=== PATIENT | male | born 1965 | race Caucasian/White ===

== ENCOUNTER → 2018-03-17 14:19 | Emergency (ER) | payer MEDICARE, MEDICAID ==
--- OUTSIDE RECORDS SUMMARY | 2018-03-17 14:33 | XMS REPORT | Continuity of Care Document ---
:1965 Author Organization [facility] Support Name Relationship Address Phone ANTHONY DELVALLE father [phone] [place] [address] WOODROW DELVALLE mother [phone] [facility] [address] [place] [address] ANTHONY DELVALLE [phone] [place] [address] WOODROW DELVALLE mother [phone] [facility] [address] [place] [address] Allergies and Intolerances No Known Allergies Medications RxNorm Medication Dose Route Instructions Start Date End Date Status 529890 Ascorbic Acid 500 MG 500 mg oral orally every day Active Oral Tablet 998436 benzonatate 200 MG 200 mg oral orally 3 times Active Oral Capsule per day as needed. (3 days) 2418 Cholecalciferol 1000 unit oral orally every Active morning ( administer with meals;) 2598 Clonazepam 0.5 mg oral orally 2 times Active per day 643893 Diazepam 5 MG Oral 5 mg oral orally once as Active Tablet needed. 893967 lacosamide 200 MG 200 mg oral orally every day Active Oral Tablet 219001 Levetiracetam 1500 mg oral orally every Active morning 541361 Levetiracetam 2000 mg oral orally every Active evening 403656 Levofloxacin 750 MG 750 mg oral orally every day Active Oral Tablet (4 days) (Start 02/18/18) Multivitamins 1 tab-cap oral orally every day Active 268443 Phenytoin sodium 200 100 mg oral orally 4 times Active MG Extended Release per week Oral Capsule 918922 Phenytoin sodium 200 200 mg oral orally 3 times Active MG Extended Release per week Oral Capsule 070020 Phenytoin sodium 200 200 mg oral orally 3 times Active MG Extended Release per week Oral Capsule 927453 zonisamide 100 MG 100 mg oral orally every day Active Oral Capsule Problems Code Code System Problem Name Start Date End Date Status 34031290 SNOMED-CT Seizure U Active 30311532 SNOMED-CT Mental disorder U Active Procedures No data in the system Results Laboratory Results Order: CBC DIFF Specimen Source: Body Site : Legend: (G,H)=High, (GG,HH,CH,#H)=Above High Threshold, (#,L)=Low, (##,CL,#L, LL)=Below Low Threshold, (C,CC,CA,#A,A)=Abnormal LOINC Test Result Flag Range Units Date 6690-2 1WBC # Bld Auto 12.4 H 4.8-10.8 K/uL 02/17/2018 17:28 91265-0 1RBC # Bld 4.84 4.60-6.20 M/uL 02/17/2018 17:28 718-7 1Hgb Bld-mCnc 15.1 13.5-18.0 gm/dL 02/17/2018 17:28 4544-3 1Hct VFr Bld Auto 46.6 41.0-53.0 % 02/17/2018 17:28 787-2 1MCV RBC Auto 96.3 80.0-100.0 fL 02/17/2018 17:28 91898-4 1MCHC RBC-mCnc 32.3 30.0-36.5 % 02/17/2018 17:28 52034-2 1MCH RBC Qn 31.1 27.0-34.0 pg 02/17/2018 17:28 80173-7 1RDW RBC 12.1 11.0-15.0 % 02/17/2018 17:28 777-3 1Platelet # Bld Auto 148 130-450 K/uL 02/17/2018 17:28 00826-2 1PMV Bld Auto 7.5 6.0-12.0 fL 02/17/2018 17:28 751-8 1Neutrophils # Bld Auto 68 37-80 % 02/17/2018 17:28 66638-7 1Lymphocytes NFr Bld 16 10-50 % 02/17/2018 17:28 5905-5 1Monocytes NFr Bld Auto 16 H 0-12 % 02/17/2018 17:28 89680-1 1Eosinophil # Bld 1 <=8 % 02/17/2018 17:28 704-7 1Basophils # Bld Auto 0 <=3 % 02/17/2018 17:28 61035-2 1Neutrophils # Bld 8.4 1.8-8.6 K/uL 02/17/2018 17:28 731-0 1Lymphocytes # Bld Auto 1.9 0.5-5.0 K/uL 02/17/2018 17:28 742-7 1Monocytes # Bld Auto 2.0 H 0.0-1.3 K/uL 02/17/2018 17:28 93319-0 1Eosinophil # Bld 0.1 0.0-0.9 K/uL 02/17/2018 17:28 704-7 1Basophils # Bld Auto 0.0 0.0-0.3 K/ul 02/17/2018 17:28 Performing Lab Footnotes:[facility] - [id number] - [address] [place] [address] [place]A Cobb [id number] Order: COMPREHENSIVE PANEL Specimen Source: Body Site: Legend: (G,H)= High, (GG,HH,CH,#H)=Above High Threshold, (#,L)=Low, (##,CL,#L,LL)=Below Low Threshold, (C,CC,CA,#A,A)=Abnormal LOINC Test Result Flag Range Units Date 2951-2 1Sodium SerPl-sCnc 137 136-145 mmol/L 02/17/2018 17:28 3-3 1Potassium SerPl-sCnc 4.2 3.5-5.2 mmol/L 02/17/2018 17:28 2074-0 1Chloride SerPl-sCnc 100 100-108 mmol/L 02/17/2018 17:28 2027-9 1CO2 SerPl-sCnc 24 21-32 mmol/L 02/17/2018 17:28 2345-7 1Glucose SerPl-mCnc 104 H 70-100 mg/dL 02/17/2018 17:28 3094-0 1BUN SerPl-mCnc 11 7-21 mg/dL 02/17/2018 17:28 2160-0 1Creat SerPl-mCnc 0.8 0.6-1.3 mg/dL 02/17/2018 17:28 Interpretive Saloni: 1Normal Kidney Function or Mild Disease - GFR >OR=60 Chronic Kidney Disease - GFR 15-59 Renal Failure - GFR < 15 GFR not calculated on patients under 18 years of age. Calculated (estimated) GFR is based on the MDRD Study equation, which assumes a steady state for creatinine. Estimated GFR may not be appropriate for medication dosing. 41891-6 1Ca-I SerPl-mCnc 10.1 8.5-10.8 mg/dL 02/17/2018 17:28 72421-4 1GFR/BSA.pred SerPl-ArVRat >60 02/17/2018 17:28 81848-2 1Bilirub Bld-mCnc 1.0 0.0-1.2 mg/dL 02/17/2018 17:28 2885-2 1Prot SerPl-mCnc 7.0 6.4-8.2 gm/dL 02/17/2018 17:28 1751-7 1Albumin SerPl-mCnc 4.5 3.4-4.8 gm/dL 02/17/2018 17:28 6768-6 1ALP SerPl-cCnc 138 40-150 U/L 02/17/2018 17:28 1742-6 1ALT SerPl-cCnc 31 0-55 U/L 02/17/2018 17:28 1920-8 1AST SerPl-cCnc 25 5-37 U/L 02/17/2018 17:28 Performing Lab Footnotes:[facility] - [id number] - [address] [place] [address] [place] HARRIS Radiology Results Order: CHEST TWO VIEWSExam Completion Date:02/17/2018 15:5302/17/2018 4:11 PM CHEST TWO VIEWS ORDERING CLINICAL INFORMATION: -- COUGH provided from eRecord without change. ADDITIONAL CLINICAL INFORMATION OBTAINED FROM EMR: None. COMPARISON : 09/30/2013 FINDINGS: Tubes and Catheters: None. Central Airways: Normal. Lungs: Dense opacity seen in the left lower lobe. Right lower lobe atelectasis with elevation of the right hemidiaphragm. Pleura/Pleural space: Normal. Heart and Mediastinum: Normal. Bones and soft tissues: No acute or aggressive changes noted. IMPRESSION: Dense opacity seen in the left lower lobe could be due to infiltrate/atelectasis. Right lower lobe atelectasis elevation of the right hemidiaphragm. END REPORT [facility] submits Radiology results to [facility] and [facility] then provides those same results to [facility]. All results are available to [facility] and [facility] provider portal users. [facility] DICOM images are available to the [facility] provider portal users only. [facility] DICOM images are not available to [facility]. There is no current [facility] cross-[facility] functionality allowing images to be available through the [facility] to [facility] connectivity. Electronically signed By: Americo Gonzales M.D. Read By: AMERICO GONZALES Date: 02/17/2018 16:27 Social History Code Code System Social History Observation Description Dates Observed 938044745 SNOMED CT Current Smoking Status Never smoker UNK AdministrativeGender Sex Assigned At Unknown Vital Signs Code Code System Vitals Value Date 8865-8 LOINC Pulse Rate 86 {beats}/min 02/17/2018 9279-1 LOINC Respiratory Rate 18 /min 02/17/2018 70643-4 LOINC O2% BldC Oximetry 95 % 02/17/2018 8480-6 LOINC BP Systolic 132 mm[Hg] 02/17/2018 8462-4 LOINC BP Diastolic 84 mm[Hg] 02/17/2018 8310-5 LOINC Body Temperature 98.3 [degF] 02/17/2018 8302-2 LOINC Height 68 [in_i] 02/17/2018 41141-6 LOINC Weight 105 kg 02/17/2018 3140-1 LOINC Body surface area Derived from formula 2.17 m2 02/17/2018 74687-8 LOINC BMI (Body Mass Index) 35.4 kg/m2 02/17/2018 Goals Section No data in the system Health Concerns No data in the systemEncounter Diagnosis Date Code Code System Diagnosis Status J18.9 ICD10 PNEUMONIA UNSPECIFIED ORGANISM Active Advance Directives No Data in the System Family History No data in the system Functional Status Code Functional Condition Code System Date Status Independent adls SNOMED CT 02/17/2018 Active Appears well nourished/hydrated SNOMED CT 02/17/2018 Active Immunizations Vaccine Code Code System Vaccine Name Date Status UTD Completed Medical Equipment No data in the system Mental Status Code Cognitive Condition Code System Date Status Perrl SNOMED CT 02/17/2018 Active Oriented x [address] 02/17/2018 Active No acute distress SNOMED CT 02/17/[address] 02/17/2018 Active Assessment and Plan Assessments No data in the systemPlan Of Treatment No data in the systemPending Tests No data in the system Hospital Discharge Instructions No data in the system Reason for Visit Reason for Visit Sore Throat, Cough
--- NOTE | 2018-03-17 17:15 | ED ---
Neurological HPI - HPI Summary HPI Summary: This pt is a 52 y/o male presenting to [facility] c/o increasing amount of seizures over the past couple of weeks. Pt reports the pt had 17 seizures yesterday alone. Pt has had focal seizures since he was 18 years old. He has not had any seizures today. Pt denies any pain, chest pain, SOB, nausea, vomiting, headache , fever, chills. Patient's sister monitors his medications. - History of Current Complaint Chief Complaint: EDSeizure Stated Complaint: SEIZURE 03/16 Time Seen by Provider: 03/17/18 17:08 Hx Obtained From: Patient, Family/[employer] - Father Onset/Duration: Started weeks ago Timing: Intermittent Episodes Lasting: - increasing in number of seizures a day Current Severity: None Pain Intensity: 0 Character: Other: - seizures Seizure Character: Generalized Aggravating: Nothing Alleviating: Nothing Associated Signs and Symptoms: Positive: Seizure. Negative: Headache, Nausea/ Vomiting, Fever, Chest Pain, Shortness of Breath Related Hx: Seizure - Allergy/Home Medications Allergies/Adverse Reactions: Allergies Allergy/AdvReac Type Severity Reaction Status Date / Time No Known Allergies Allergy Verified 03/17/18 14:27 Home Medications: Home Medications Ascorbic Acid TAB* [Vitamin C TAB*] 500 mg PO DAILY 03/17/18 [History Confirmed 03/17/18] Cholecalciferol TAB* [Vitamin D TAB*] 1,000 unit PO DAILY WITH MEAL 03/17/18 [ History Confirmed 03/17/18] Diazepam TAB(*) [Valium TAB(*)] 5 mg PO DAILY PRN 03/17/18 [History Confirmed ] Lacosamide TAB* [Vimpat TAB*] 200 mg PO DAILY MDD 200 mg 03/17/18 [History Confirmed 03/17/18] Multivitamins/Minerals TAB* [Theragran/minerals TAB*] 1 tab PO DAILY 03/17/18 [ History Confirmed 03/17/18] Phenytoin CAP(*) [Dilantin CAP(*)] 100 mg PO SUTUTHSA 03/17/18 [History Confirmed 03/17/18] Phenytoin CAP(*) [Dilantin CAP(*)] 200 mg PO MOWEFR 03/17/18 [History Confirmed 03/17/18] Phenytoin CAP(*) [Dilantin CAP(*)] 200 mg PO QAM 03/17/18 [History Confirmed ] clonazePAM TAB(*) [KlonoPIN TAB(*)] 0.5 mg PO BID 03/17/18 [History Confirmed ] levETIRAcetam TAB* [Keppra TAB*] 1,500 mg PO QAM 03/17/18 [History Confirmed ] levETIRAcetam TAB* [Keppra TAB*] 2,000 mg PO QPM 03/17/18 [History Confirmed ] PMH/Surg Hx/FS Hx/Imm Hx Endocrine/Hematology History: Denies: Hx Diabetes, Hx Thyroid Disease Cardiovascular History: Denies: Hx Hypertension Respiratory History: Denies: Hx Asthma, Hx Chronic Obstructive Pulmonary Disease (COPD) GI History: Denies: Hx Ulcer Neurological History: Reports: Hx Developmental Delay, Hx Seizures Infectious Disease History: No Infectious Disease History: Denies: Hx Clostridium Difficile, Hx Hepatitis, Hx Human Immunodeficiency Virus (HIV), Hx of Known/Suspected MRSA, Hx Shingles, Hx Tuberculosis, Hx Known/ Suspected VRE, Hx Known/Suspected VRSA, History Other Infectious Disease, Traveled Outside the [place] in Last 30 Days - Family History Family History: FHx of kidney stones - Social History Alcohol Use: None Substance Use Type: Reports: None Smoking Status (MU): Never Smoked Tobacco Review of Systems Negative: Fever, Chills Negative: Chest Pain Negative: Shortness Of Breath Negative: Vomiting, Nausea Neurological: Other - POS: seizures Negative: Headache All Other Systems Reviewed And Are Negative: Yes Physical Exam - Summary Physical Exam Summary: VITAL SIGNS: Reviewed. GENERAL: Patient is a well-developed and nourished male who is lying comfortable in the stretcher. Patient is not in any acute respiratory distress. HEAD AND FACE: No signs of trauma. No ecchymosis, hematomas or skull depressions. No sinus tenderness. EYES: PERRLA, EOMI x 2, No injected conjunctiva, no nystagmus. EARS: Hearing grossly intact. Ear canals and tympanic membranes are within normal limits. MOUTH: Oropharynx within normal limits. NECK: Supple, trachea is midline, no adenopathy, no JVD, no carotid bruit, no c- spine tenderness, neck with full ROM. CHEST: Symmetric, no tenderness at palpation LUNGS: Clear to auscultation bilaterally. No wheezing or crackles. CVS: Regular rate and rhythm, S1 and S2 present, no murmurs or gallops appreciated. ABDOMEN: Soft, non-tender. No signs of distention. No rebound, no guarding, and no masses palpated. Bowel sounds are normal. EXTREMITIES: FROM in all major joints, no edema, no cyanosis or clubbing. NEURO: Alert and oriented x 3. No acute neurological deficits. Speech is normal and follows commands. SKIN: Dry and warm Triage Information Reviewed: Yes Vital Signs On Initial Exam: Initial Vitals Temp Pulse Resp BP Pulse Ox 98.4 F 87 18 135/80 96 03/17/18 14:21 03/17/18 14:21 03/17/18 14:21 03/17/18 14:21 03/17/18 14:21 Vital Signs Reviewed: Yes Diagnostics - Vital Signs Vital Signs Temp Pulse Resp BP Pulse Ox 03/17/18 17:00 73 96 03/17/18 16:56 77 135/93 96 03/17/18 16:51 78 95 03/17/18 14:21 98.4 F 87 18 135/80 96 - Laboratory Result Diagrams: 03/17/18 17:36 03/17/18 17:36 Lab Statement: Any lab studies that have been ordered have been reviewed, and results considered in the medical decision making process. Re-Evaluation - Re-Evaluation First Eval Re-Evaluation Time: 17:11 Comment: Dr. Candelaria, neurologist, in to examine the pt. Course/Dx - Course Assessment/Plan: This pt is a 52 y/o male presenting [place] [facility] c/o increasing amount of seizures over the past couple of weeks. Pt reports the pt had 17 seizures yesterday alone. Pt has had focal seizures since he was 18 years old. He has not had any seizures today. Pt denies any pain, chest pain, SOB, nausea, vomiting, headache, fever, chills. Patient's sister monitors his medications. Blood work without any significant abnormality. Phenytoin level 17.3. Patient was seen by Dr. Candelaria and recommends for the patient to be discharged home with follow-up from him at his office. He recommends no additional imaging. At this point I discussed the test results and findings with the patient and the patients father and they agree for the patient to be discharged home with follow-up with Dr. Candelaria. They were recommended to return to the emergency department if patient develops more seizures or any other symptoms. They understand and agree. They verbalized understanding. Patient is hemodynamically stable, alert and oriented x3. - Diagnoses Provider Diagnoses: Seizure Discharge - Sign-Out/Discharge Documenting (check all that apply): Patient Departure - Discharge home - Discharge Plan Condition: Stable Disposition: HOME Patient Education Materials: Recurrent Seizures in Adults (ED) Referrals: Travis Candelaria MD [Medical Doctor] - Hansa Mera MD [Primary Care Provider] - 2 Days Additional Instructions: FOLLOW UP WITH YOUR PRIMARY CARE PROVIDER and DR. CANDELARIA. RETURN TO THE ED FOR ANY NEW OR WORSENING SYMPTOMS. - Billing Disposition and Condition Condition: STABLE Disposition: Home - Attestation Statements Document Initiated by Lin: Yes Documenting Scribe: Brenda Robert Provider For Whom Scribe is Documenting (Include Credential): Babatunde Beck MD Scribe Attestation: Brenda Lo scribed for Babatunde Beck MD on 03/18/18 at 1816. Scribe Documentation Reviewed: Yes Provider Attestation: The documentation as recorded by the Brenda suarez accurately reflects the service I personally performed and the decisions made by , Babatunde Beck MD
[2018-03-17 17:59] LABS: ABS Basophils 0 10^3/ul (0-0.2); ABS Eosinophils 0.5 10^3/ul (0-0.6); ABS Lymphocytes 1.9 10^3/ul (1.0-4.8); ABS Monocytes 0.8 10^3/ul (0-0.8); ABS Neutrophils 3.3 10^3/ul (1.5-7.7); ABS Nucleated RBC 0 10^3/ul; Eosinophil % 7.1 % (0-6); Hematocrit 46 % (42-52); Hemoglobin 15.9 g/dl (14.0-18.0); Lymphocyte % 29.7 % (25-47); Mean Corpuscular HGB Conc 35 g/dl (31-36); Mean Corpuscular Hemoglobin 34 pg (27-31); Mean Corpuscular Volume 96 fL (80-94); Mean Platelet Volume 8.8 um3 (7.4-10.4); Nucleated Red Blood Cells % 0.1; Platelet Count 145 10^3/ul (150-450); Red Blood Count 4.74 10^6/ul (4.00-5.40); Red Cell Distribution Width 14 % (10.5-15); White Blood Count 6.5 10^3/ul (3.5-10.8)
[2018-03-17 18:09] LABS: EGFR Non-African American 103.8 (>60)
[2018-03-17 19:04] VITALS: BP 109/82
--- NOTE | 2018-03-17 22:40 | CONS ---
NEUROLOGY CONSULTATION: DATE OF CONSULTATION: 03/17/18 LOCATION: He is in the emergency room. REFERRING PHYSICIAN: Dr. Beck. CHIEF COMPLAINT: Increase in seizure frequency. 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 I saw him initially about a month ago. He has brief focal seizures, sometimes none for several days, sometimes multiple ones in a day. Yesterday, at his [facility] program in [place], he had 7 episodes and when he returned home, he had 10 more. His family kept him home from work today. He has not had any seizures today according to his father. Episodes consist of aversive head turning and disorientation. He never falls. He has not had any convulsions at least in many years. He is on Vimpat 2 tablets twice per day, phenytoin 400 mg alternating with 500 mg per day, and Keppra 1500 mg in the morning and 2000 mg at bedtime. His father lives with him and make sure he takes his medicines and when asked if he might have missed any doses, he said "I do not think so." His father does not know what medicines he is taking and I spoke with his sister, Hansa, on the phone who informed of what his current medical regimen is. He had pneumonia about a month ago and had a flurry of seizures. He has not had any problems with shortness of breath lately, fevers, chills, dysuria, or intestinal problems. He has not had any falls. PAST MEDICAL HISTORY: Notable for a static encephalopathy with medically refractory seizures. He has had a cholecystectomy in the past. MEDICATIONS: 1. Phenytoin 400 mg per day alternating with 500 mg per day. 2. Keppra 1500 mg q.a.m. and 2000 mg q.h.s. 3. Vimpat 2 tablets twice per day, dose not known. REVIEW OF SYSTEMS: Again, negative for fevers, sweats, chills, intestinal problems, shortness of breath, sore throat, falls, coughs, diarrhea, or change in weight. Currently, he feels fine. He denies headache. PHYSICAL EXAM: He is an overweight, well hydrated, has a small head circumference. Temperature 98.4, blood pressure 135/93, heart rate in the 70s and regular, respiratory rate 18, oxygen saturation is 96% on room air. Lungs are clear bilaterally. Heart is in regular rate and rhythm without murmurs. Neck is supple. Oral mucosa is moist and there is no oral trauma. There is no pharyngeal erythema. No rashes. Neurologically, pupils reacting equally from 4 down to 2.5 mm. Eye movements are full. Funduscopic exam reveals sharp discs bilaterally. Visual arce are full to confrontation. Facial musculature and sensation are intact and symmetric. Palate and tongue appear normal and speech is clear without dysarthria. Motor exam reveals some paratonia. He has good strength in the limbs proximally and distally. There is no drift of the limbs. Sensory exam to vibration and pin is symmetric in the limbs. There is a mild sustention tremor in the hands. There is no rest tremor. Finger taps are little clumsy bilaterally. Reflexes are brisk and symmetric. He is alert and pleasant and cooperative. There are no lapses in attention. He is a poor historian. Language is simple, but relatively fluent. DIAGNOSTIC STUDIES/LAB DATA: There is no laboratory data yet to review. IMPRESSION AND PLAN: Increase in focal seizures without a clear precipitant. We will obtain anticonvulsant levels and check CBC and chemistry profile. If there is no evidence of an infection, then I would discharge him home and I will adjust his medications as an outpatient. I have discussed my impression with Dr. Beck. [id number]/[facility] #: [id number] MIREYA
== END | disposition home or self-care (01) ==
LOC: ED 14:19
DX: G40.909 Epilepsy, unspecified, not intractable, without status epilepticus (principal)
CPT/HCPCS: 36415; 80053; 80177; 80185; 80299; 85025; 99283

== ENCOUNTER 2019-10-16 18:00 | Inpatient (IN) ==
[2019-10-16] MEDS ORDERED: Bacitracin OINTMENT TUBE TOPICAL ONE (18:20)
[2019-10-16] MEDS ORDERED: NS 0.9% 1000 ml BAG 1,000 ML IV ONE ×3 (18:20→23:18)
[2019-10-16 18:44] LABS: ABS Eosinophils 0.2 10^3/ul (0-0.6); ABS Lymphocytes 1.1 10^3/ul (1.0-4.8); ABS Monocytes 0.8 10^3/ul (0-0.8); Eosinophil % 2.6 %; Hematocrit 45 % (42-52); Hemoglobin 15.8 g/dL (14.0-18.0); Mean Corpuscular HGB Conc 35 g/dL (31-36); Mean Corpuscular Hemoglobin 33 pg (27-31); Mean Corpuscular Volume 95 fL (80-94); Mean Platelet Volume 8.4 fL (7.4-10.4); Nucleated Red Blood Cells % 0.2; Platelet Count 187 10^3/uL (150-450); Red Blood Count 4.76 10^6 /uL (4.18-5.48); Red Cell Distribution Width 14 % (10-15); White Blood Count 7.6 10^3/uL (3.5-10.8)
[2019-10-16 18:59] LABS: Albumin 4.3 g/dL (3.2-5.2); Albumin/Globulin Ratio 1.5 (1-3); BUN/Creatinine Ratio 14.1 (8-20); Calcium 9.8 mg/dL (8.6-10.3); EGFR African American 104.5 (>60); EGFR Non-African American 86.4 (>60); Globulin 2.8 g/dL (2-4); Potassium 4.4 mmol/L (3.5-5.0); Total Bilirubin 0.3 mg/dL (0.2-1.0); Total Protein 7.1 g/dL (6.4-8.9)
[2019-10-16 19:59] LABS: Phenytoin 30.5 mcg/mL (10-20)
[2019-10-16 20:11] LABS: Magnesium 1.9 mg/dL (1.9-2.7)
[2019-10-16] MEDS ORDERED: Magnesium Sulfate 2 gm BAG 2 GM/50 ML BAG IVPB ONE (20:44)
[2019-10-16] MEDS ORDERED: NS 0.9% 1000 ml BAG 1,000 ML IV SCH (21:45)
[2019-10-16] MEDS: Heparin 5000 UNITS/ML 1 mL VIAL SUBCUT SCH (23:32)
[2019-10-17] MEDS: Heparin 5000 UNITS/ML 1 mL VIAL SUBCUT SCH ×3 (04:59→21:12)
[2019-10-17 06:33] LABS: ABS Eosinophils 0.2 10^3/ul (0-0.6); ABS Lymphocytes 1.2 10^3/ul (1.0-4.8); ABS Monocytes 0.7 10^3/ul (0-0.8); Eosinophil % 3.8 %; Hematocrit 42 % (42-52); Hemoglobin 14.4 g/dL (14.0-18.0); Lymphocyte % 21.8 %; Mean Corpuscular HGB Conc 35 g/dL (31-36); Mean Corpuscular Hemoglobin 33 pg (27-31); Mean Corpuscular Volume 96 fL (80-94); Mean Platelet Volume 8.8 fL (7.4-10.4); Nucleated Red Blood Cells % 0.1; Platelet Count 156 10^3/uL (150-450); Red Blood Count 4.36 10^6 /uL (4.18-5.48); Red Cell Distribution Width 14 % (10-15); White Blood Count 5.5 10^3/uL (3.5-10.8)
[2019-10-17 06:51] LABS: BUN/Creatinine Ratio 11.6 (8-20); EGFR Non-African American 93.4 (>60); Phenytoin 23.2 mcg/mL (10-20); Potassium 4.2 mmol/L (3.5-5.0)
[2019-10-18] MEDS: Heparin 5000 UNITS/ML 1 mL VIAL SUBCUT SCH ×3 (05:32→20:43)
[2019-10-19] MEDS: Heparin 5000 UNITS/ML 1 mL VIAL SUBCUT SCH ×3 (05:17→22:00)
[2019-10-19] MEDS ORDERED: PHENYTOIN 100 MG PO SCH ×3 (10:00→21:00)
[2019-10-19] MEDS: PHENYTOIN 100 MG PO SCH (17:14)
[2019-10-20] MEDS: PHENYTOIN 100 MG PO SCH (06:50)
[2019-10-20] MEDS: Heparin 5000 UNITS/ML 1 mL VIAL SUBCUT SCH ×2 (06:51→13:24)
[2019-10-20 11:36] VITALS: BP 122/72
[2019-10-20 16:49] LABS: Levetiracetam 39.2 mcg/mL
[2019-10-21 11:49] LABS: Lacosamide 10.7 mcg/mL (1.0 - 10.0)
== END 2019-10-20 16:30 | disposition short-term general hospital (02) | DRG 101 ==
LOC: ED 18:00 → MEDTELE 18:00
PROVIDERS: ADMIT Internal Medicine; ATTEND Internal Medicine

== ENCOUNTER 2021-03-23 06:05 | Inpatient (IN) ==
[2021-03-23 07:21] LABS: ABS Lymphocytes 0.3 10^3/ul (1.0-4.8); ABS Monocytes 0.5 10^3/ul (0-0.8); ABS Neutrophils 4.5 10^3/ul (1.5-7.7); Eosinophil % 0.3 %; Hematocrit 35 % (42-52); Hemoglobin 11.5 g/dL (14.0-18.0); Lymphocyte % 6.2 %; Mean Corpuscular HGB Conc 33 g/dL (31-36); Mean Corpuscular Hemoglobin 33 pg (27-31); Mean Corpuscular Volume 101 fL (80-94); Mean Platelet Volume 11.8 fL (7.4-10.4); Platelet Count 107 10^3/uL (150-450); Red Blood Count 3.53 10^6 /uL (4.18-5.48); Red Cell Distribution Width 15 % (10-15); White Blood Count 5.4 10^3/uL (3.5-10.8)
[2021-03-23 07:22] LABS: Venous Bicarbonate HCO3 28.7 mmol/L (24-28)
[2021-03-23 07:37] LABS: Rapid COVID-19 Molecular Undetected (Undetected)
[2021-03-23 07:38] LABS: Albumin 4.1 g/dL (3.2-5.2); Albumin/Globulin Ratio 1.5 (1-3); C Reactive Protein 9.66 mg/L (<8.01); Calcium 9.3 mg/dL (8.6-10.3); Globulin 2.7 g/dL (2-4); Potassium 4.1 mmol/L (3.5-5.0); Total Bilirubin 0.4 mg/dL (0.2-1.0); Total Protein 6.8 g/dL (6.4-8.9)
[2021-03-23 07:39] LABS: Troponin I 0.02 ng/mL (<0.03)
[2021-03-23] MEDS ORDERED: Furosemide 40 mg/4 ml IV VIAL IV SLOW PU ONE (07:56)
[2021-03-23] MEDS ORDERED: Iohexol 350 (CONTRAST) 500 ML MDV IV ONE (08:45)
[2021-03-23 09:48] LABS: Urine Appearance Clear; Urine Bilirubin Negative (Negative); Urine Blood 2+ (Negative); Urine Color Straw; Urine Glucose 1+(50 mg/dL) (Negative); Urine Ketones Negative (Negative); Urine Nitrite Negative (Negative); Urine Protein Negative (Negative); Urine Specific Gravity 1.033 (1.002-1.030); Urine Urobilinogen Negative (Negative)
[2021-03-23] MEDS ORDERED: methylPREDNISolone 125 mg 2 ML VIAL IV ONE (09:53)
[2021-03-23 09:54] LABS: Urine Bacteria Absent (Absent); Urine Red Blood Cell 1+(3-5/hpf) (Absent); Urine Squamous Epithelial Cell Present (Absent); Urine White Blood Cell Trace(0-5/hpf) (Absent)
[2021-03-23] MEDS ORDERED: Vancomycin 1,000 MG in NS 0.9% 250 ml 250 ML IVPB ONE (11:44)
[2021-03-23] MEDS ORDERED: Vancomycin per Pharmacy 1 EA NOTE FOLLOW UP SCH (12:00)
[2021-03-23] MEDS ORDERED: Vancomycin 1,250 MG in NS 0.9% 250 ml 250 ML IVPB ONE (13:00)
[2021-03-23] MEDS: Cefepime 1 GM in Dextrose 1 GM/50 ML BAG IV SCH (13:56)
[2021-03-23] MEDS ORDERED: Furosemide 40 mg/4 ml IV VIAL IV ONE (19:47)
[2021-03-23] MEDS: Enoxaparin 40 MG/0.4 ML SYR SUBCUT SCH (23:01)
[2021-03-24] MEDS: Cefepime 1 GM in Dextrose 1 GM/50 ML BAG IV SCH ×2 (02:14→13:49)
[2021-03-24] MEDS: Vancomycin 1,250 MG in NS 0.9% 250 ml 250 ML IVPB SCH ×2 (03:14→14:48)
[2021-03-24] MEDS ORDERED: Furosemide 40 mg/4 ml IV VIAL IV ONE (18:15)
[2021-03-24] MEDS: Enoxaparin 40 MG/0.4 ML SYR SUBCUT SCH (22:50)
[2021-03-25] MEDS: Cefepime 1 GM in Dextrose 1 GM/50 ML BAG IV SCH ×2 (02:19→13:47)
[2021-03-25] MEDS: Vancomycin 1,250 MG in NS 0.9% 250 ml 250 ML IVPB SCH ×2 (03:31→15:38)
[2021-03-25 06:51] LABS: ABS Lymphocytes 1.2 10^3/ul (1.0-4.8); ABS Monocytes 0.8 10^3/ul (0-0.8); ABS Neutrophils 3.2 10^3/ul (1.5-7.7); Eosinophil % 0.8 %; Hematocrit 36 % (42-52); Lymphocyte % 23.3 %; Mean Corpuscular HGB Conc 34 g/dL (31-36); Mean Corpuscular Hemoglobin 34 pg (27-31); Mean Corpuscular Volume 100 fL (80-94); Mean Platelet Volume 10.7 fL (7.4-10.4); Nucleated Red Blood Cells % 0.1; Platelet Count 107 10^3/uL (150-450); Red Blood Count 3.57 10^6 /uL (4.18-5.48); Red Cell Distribution Width 15 % (10-15); White Blood Count 5.3 10^3/uL (3.5-10.8)
[2021-03-25 06:54] LABS: Calcium 9.2 mg/dL (8.6-10.3); Potassium 3.8 mmol/L (3.5-5.0)
[2021-03-25 13:07] LABS: C Reactive Protein 7.76 mg/L (<8.01)
[2021-03-25] MEDS ORDERED: Vancomycin Trough Check NOTE FOLLOW UP ONE (13:30)
[2021-03-25 14:50] LABS: Vancomycin Trough 15.9 mcg/mL
[2021-03-25] MEDS: Enoxaparin 40 MG/0.4 ML SYR SUBCUT SCH (20:27)
[2021-03-26] MEDS: Cefepime 1 GM in Dextrose 1 GM/50 ML BAG IV SCH ×2 (01:33→13:22)
[2021-03-26] MEDS: Vancomycin 1,250 MG in NS 0.9% 250 ml 250 ML IVPB SCH ×2 (02:35→14:56)
[2021-03-26 05:06] LABS: Venous Bicarbonate HCO3 34.6 mmol/L (24-28)
[2021-03-26 05:47] LABS: ABS Eosinophils 0.1 10^3/ul (0-0.6); ABS Lymphocytes 1.2 10^3/ul (1.0-4.8); ABS Monocytes 0.9 10^3/ul (0-0.8); ABS Neutrophils 2.6 10^3/ul (1.5-7.7); Eosinophil % 1.9 %; Hematocrit 36 % (42-52); Lymphocyte % 25.7 %; Mean Corpuscular HGB Conc 33 g/dL (31-36); Mean Corpuscular Hemoglobin 33 pg (27-31); Mean Corpuscular Volume 99 fL (80-94); Nucleated Red Blood Cells % 0.1; Platelet Count 94 10^3/uL (150-450); Red Blood Count 3.67 10^6 /uL (4.18-5.48); Red Cell Distribution Width 14 % (10-15); White Blood Count 4.9 10^3/uL (3.5-10.8)
[2021-03-26 05:50] LABS: Anisocytosis 1+; Basophilic Stippling 1+; Macrocytosis 1+; Polychromasia 1+
[2021-03-26 05:53] LABS: Calcium 9.3 mg/dL (8.6-10.3)
[2021-03-26] MEDS: Furosemide 40 mg/4 ml IV VIAL IV SLOW PU SCH (13:22)
[2021-03-26] MEDS ORDERED: Perflutren Lipid Microsphere 3 ML VIAL ONE (14:23)
[2021-03-26] MEDS: cefTRIAXone 2 GM ADDV.VIAL 2 GM in NS 0.9% 100 ml BAG 100 ML IV SCH (23:12)
[2021-03-26] MEDS: Enoxaparin 40 MG/0.4 ML SYR SUBCUT SCH (23:12)
[2021-03-27] MEDS: Furosemide 40 mg/4 ml IV VIAL IV SLOW PU SCH (08:34)
[2021-03-27 10:18] LABS: HIV 4th Generation Nonreactive (Nonreactive)
[2021-03-27 10:56] LABS: ABS Eosinophils 0.1 10^3/ul (0-0.6); ABS Monocytes 0.6 10^3/ul (0-0.8); ABS Neutrophils 1.9 10^3/ul (1.5-7.7); Eosinophil % 2.2 %; Hematocrit 38 % (42-52); Hemoglobin 12.6 g/dL (14.0-18.0); Lymphocyte % 27.5 %; Mean Corpuscular HGB Conc 34 g/dL (31-36); Mean Corpuscular Hemoglobin 33 pg (27-31); Mean Corpuscular Volume 98 fL (80-94); Mean Platelet Volume 10.1 fL (7.4-10.4); Platelet Count 105 10^3/uL (150-450); Red Blood Count 3.81 10^6 /uL (4.18-5.48); Red Cell Distribution Width 14 % (10-15); White Blood Count 3.6 10^3/uL (3.5-10.8)
[2021-03-27 11:12] LABS: Calcium 9.8 mg/dL (8.6-10.3); Potassium 3.9 mmol/L (3.5-5.0)
[2021-03-27] MEDS ORDERED: acetaZOLAMIDE IV 500 MG in NS 0.9% 50 ML 50 ML IVPB ONE (13:47)
[2021-03-27] MEDS: Potassium Chlor 20 meq TAB.ER PO SCH (15:47)
[2021-03-27] MEDS: Enoxaparin 40 MG/0.4 ML SYR SUBCUT SCH (21:30)
[2021-03-27] MEDS: cefTRIAXone 2 GM ADDV.VIAL 2 GM in NS 0.9% 100 ml BAG 100 ML IV SCH (21:57)
[2021-03-28 05:59] LABS: ABS Eosinophils 0.1 10^3/ul (0-0.6); ABS Lymphocytes 0.9 10^3/ul (1.0-4.8); ABS Monocytes 0.6 10^3/ul (0-0.8); ABS Neutrophils 1.6 10^3/ul (1.5-7.7); Eosinophil % 2.8 %; Hematocrit 37 % (42-52); Hemoglobin 12.3 g/dL (14.0-18.0); Lymphocyte % 28.1 %; Mean Corpuscular HGB Conc 33 g/dL (31-36); Mean Corpuscular Hemoglobin 33 pg (27-31); Mean Corpuscular Volume 99 fL (80-94); Mean Platelet Volume 10.7 fL (7.4-10.4); Platelet Count 102 10^3/uL (150-450); Red Blood Count 3.74 10^6 /uL (4.18-5.48); Red Cell Distribution Width 14 % (10-15); White Blood Count 3.2 10^3/uL (3.5-10.8)
[2021-03-28 06:00] LABS: Venous Bicarbonate HCO3 40.6 mmol/L (24-28)
[2021-03-28 06:17] LABS: Calcium 9.9 mg/dL (8.6-10.3); Potassium 4.2 mmol/L (3.5-5.0)
[2021-03-28] MEDS ORDERED: acetaZOLAMIDE IV 500 MG in NS 0.9% 50 ML 50 ML IVPB SCH (09:00)
[2021-03-28] MEDS: Potassium Chlor 20 meq TAB.ER PO SCH (10:54)
[2021-03-28] MEDS ORDERED: Vancomycin Trough Check NOTE FOLLOW UP ONE (13:30)
[2021-03-28] MEDS: acetaZOLAMIDE IV 500 MG in NS 0.9% 50 ML 50 ML IVPB SCH (16:00)
[2021-03-28] MEDS: cefTRIAXone 2 GM ADDV.VIAL 2 GM in NS 0.9% 100 ml BAG 100 ML IV SCH (21:33)
[2021-03-28] MEDS: Enoxaparin 40 MG/0.4 ML SYR SUBCUT SCH (21:33)
[2021-03-29 06:25] LABS: ABS Eosinophils 0.1 10^3/ul (0-0.6); ABS Monocytes 0.6 10^3/ul (0-0.8); ABS Neutrophils 1.6 10^3/ul (1.5-7.7); Eosinophil % 2.2 %; Hematocrit 37 % (42-52); Hemoglobin 12.1 g/dL (14.0-18.0); Lymphocyte % 30.9 %; Mean Corpuscular HGB Conc 33 g/dL (31-36); Mean Corpuscular Hemoglobin 33 pg (27-31); Mean Corpuscular Volume 99 fL (80-94); Mean Platelet Volume 11.1 fL (7.4-10.4); Platelet Count 97 10^3/uL (150-450); Red Blood Count 3.72 10^6 /uL (4.18-5.48); Red Cell Distribution Width 14 % (10-15); White Blood Count 3.2 10^3/uL (3.5-10.8)
[2021-03-29 06:37] LABS: Calcium 9.9 mg/dL (8.6-10.3)
[2021-03-29] MEDS: Potassium Chlor 20 meq TAB.ER PO SCH (07:58)
[2021-03-29] MEDS: acetaZOLAMIDE IV 500 MG in NS 0.9% 50 ML 50 ML IVPB SCH (13:58)
[2021-03-29 16:05] VITALS: BP 120/63
== END 2021-03-29 17:25 | disposition home or self-care (01) | DRG 193 ==
LOC: ED 06:05 → MED 11:37 → SUATTDRO 11:37 → MED 20:16
PROVIDERS: ADMIT Internal Medicine; ATTEND Hospitalist